=== PATIENT | female | born 1950 | race Caucasian/White ===

== ENCOUNTER 2018-01-27 14:48 | Emergency (ER) | payer MEDICARE, OTHER ==
--- NOTE | 2018-01-27 17:28 | ED ---
Donna House Emily, scribed for Nicki Owen MD on 01/27/18 at 1709 . 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 The patient rates the pain 5/10 in severity. Symptoms aggravated by nothing. Symptoms alleviated by nothing. Patient reports edema and erythema. Pt reports that cut hair gets between her nail and the nail bed. - History of Current Complaint Chief Complaint: EDExtremityUpper Stated Complaint: RT THUMB SWELLING Hx Obtained From: Patient Onset/Duration: Started Days Ago, Still Present Timing: Constant, Lasting Days Severity Initially: Moderate Severity Currently: Moderate Pain Location: Finger Aggravating Factor(s): Nothing Alleviating Factor(s): Nothing Associated Signs & Symptoms: Positive: Swelling, Redness - Allergies/Home Medications Allergies/Adverse Reactions: Allergies Allergy/AdvReac Type Severity Reaction Status Date / Time No Known Allergies Allergy Verified 01/27/18 15:09 PMH/Surg Hx/FS Hx/Imm Hx Previously Healthy: No Opthamlomology History: Denies: Hx Legally Blind EENT History: Denies: Hx Deafness - Surgical History Surgery Procedure, Year, and Place: CHOLECYSTECTOMY, Infectious Disease History: No Infectious Disease History: Denies: Traveled Outside the [place] in Last 30 Days - Family History Known Family History: Positive: Other Family History: NON CONTRIBUTORY - Social History Occupation: Employed Full-time Lives: Alone Alcohol Use: Occasionally Substance Use Type: Reports: None Smoking Status (MU): Never Smoked Tobacco Review of Systems Positive: Edema, Other - Positive R thumb pain Positive: Other - Positive erythema All Other Systems Reviewed And Are Negative: Yes Physical Exam - Summary Physical Exam Summary: Appearance: Well-appearing, Well-nourished Skin: Warm. Right lateral thumb is mildly tender to palpation. Erythematous. Without fluctuance. Eyes: Normal ENT: Normal Neck: Supple, nontender Respiratory: Clear to auscultation Cardiovascular: Regular rate, regular rhythm. Normal S1, S2. Abdomen: Soft, nontender Musculoskeletal: Normal, Strength/ROM Intact Neurological: Normal, A&Ox3 Psychiatric: Normal General: No acute distress Triage Information Reviewed: Yes Vital Signs On Initial Exam: Initial Vitals Temp Pulse Resp BP Pulse Ox 97.7 F 81 17 125/98 97 01/27/18 15:06 01/27/18 15:06 01/27/18 15:06 01/27/18 15:06 01/27/18 15:06 Vital Signs Reviewed: Yes Diagnostics - Vital Signs Vital Signs Temp Pulse Resp BP Pulse Ox 01/27/18 15:06 97.7 F 81 17 125/98 97 - Laboratory Lab Statement: Any lab studies that have been ordered have been reviewed, and results considered in the medical decision making process. Course/Dx - Course Course Of Treatment: felon of right thumb- PO abx [id number] - Diagnoses Provider Diagnoses: Felon of finger of right hand Discharge - Sign-Out/Discharge Documenting (check all that apply): Discharge - Discharge Plan Condition: Stable Disposition: HOME Prescriptions: Cephalexin CAP* [Keflex CAP*] 500 mg PO TID 10 Days #30 cap Patient Education Materials: Paronychia (ED) Referrals: Sae West MD [Primary Care Provider] - Additional Instructions: take antibiotics as directed, then go to urgent care if pain worsens in 3-4 days ON the antibiotics - Billing Disposition and Condition Condition: STABLE Disposition: HOME The documentation as recorded by the Donna chavarria Emily accurately reflects the service I personally performed and the decisions made by , Nicki Owen MD.
[2018-01-27 17:37] VITALS: BP 121/90
== END 2018-01-27 17:36 | disposition home or self-care (01) ==
LOC: ED 14:48
DX: L03.011 Cellulitis of right finger (principal)
CPT/HCPCS: 99282

== ENCOUNTER 2018-07-31 23:19 | Emergency (ER) | payer MEDICARE ==
[2018-08-01] MEDS ORDERED: Meclizine TAB* 12.5 MG PO ONE (02:42)
--- NOTE | 2018-08-01 02:42 | ED ---
Neurological HPI - HPI Summary HPI Summary: The pt is a 67 y.o female presenting to the [facility] with a chief complaint of dizziness. The pt describes the symptoms as "room spinning" and states she has vertigo as well. She has had these symptoms previously but the most recent episode was significantly longer as per pt report. The pt states that the episode lasted 4 hours. During the episode she reports N/V. Other dizziness episodes were intermittent and short while most recent one was described to be "constant." She denies fever and other "cold-like" symptoms. The onset of the episode was stated to be in the morning. - History of Current Complaint Chief Complaint: EDDizziness Stated Complaint: DIZZINESS Time Seen by Provider: 08/01/18 02:30 Hx Obtained From: Patient Pain Intensity: 0 Pain Scale Used: 0-10 Numeric Character: Room Spinning, Dizzy - Allergy/Home Medications Allergies/Adverse Reactions: Allergies Allergy/AdvReac Type Severity Reaction Status Date / Time No Known Allergies Allergy Verified 07/31/18 23:32 PMH/Surg Hx/FS Hx/Imm Hx Sensory History: Denies: Hx Legally Blind, Hx Deafness Opthamlomology History: Denies: Hx Legally Blind - Surgical History Surgery Procedure, Year, and Place: CHOLECYSTECTOMY, Infectious Disease History: No Infectious Disease History: Denies: Traveled Outside the US in Last 30 Days - Family History Known Family History: Positive: Other Family History: NON CONTRIBUTORY - Social History Alcohol Use: Weekly Substance Use Type: Reports: None Smoking Status (MU): Former Smoker Review of Systems Negative: Fever Eyes: Negative ENT: Negative Cardiovascular: Negative Respiratory: Negative Positive: Vomiting, Nausea Genitourinary: Negative Musculoskeletal: Negative Skin: Negative Neurological: Other - Dizziness/room-spinning Psychological: Normal All Other Systems Reviewed And Are Negative: Yes Physical Exam - Summary Physical Exam Summary: VITAL SIGNS: Reviewed. GENERAL: Patient is a well-developed and nourished (FEMALE) who is lying comfortable in the stretcher. Patient is not in any acute respiratory distress. HEAD AND FACE: No signs of trauma. No ecchymosis, hematomas or skull depressions. No sinus tenderness. EYES: PERRLA, EOMI x 2, No injected conjunctiva, no nystagmus. EARS: Hearing grossly intact. Ear canals and tympanic membranes are within normal limits. MOUTH: Oropharynx within normal limits. NECK: Supple, trachea is midline, no adenopathy, no JVD, no carotid bruit, no c- spine tenderness, neck with full ROM. CHEST: Symmetric, no tenderness at palpation LUNGS: Clear to auscultation bilaterally. No wheezing or crackles. CVS: Regular rate and rhythm, S1 and S2 present, no murmurs or gallops appreciated. ABDOMEN: Soft, non-tender. No signs of distention. No rebound no guarding, and no masses palpated. Bowel sounds are normal. EXTREMITIES: FROM in all major joints, no edema, no cyanosis or clubbing. NEURO: Alert and oriented x 3. No acute neurological deficits. Speech is normal and follows commands. SKIN: Dry and warm Triage Information Reviewed: Yes Vital Signs On Initial Exam: Initial Vitals Temp Pulse Resp BP Pulse Ox 97.4 F 68 16 141/67 96 07/31/18 23:30 07/31/18 23:30 07/31/18 23:30 07/31/18 23:30 07/31/18 23:30 Vital Signs Reviewed: Yes Diagnostics - Vital Signs Vital Signs Temp Pulse Resp BP Pulse Ox 08/01/18 01:31 97.2 F 66 16 147/73 99 07/31/18 23:30 97.4 F 68 16 141/67 96 - Laboratory Lab Statement: Any lab studies that have been ordered have been reviewed, and results considered in the medical decision making process. Course/Dx - Course Course Of Treatment: The pt is a 67 y.o female with a chief complaint of dizziness. The pt [facility] that revealed negative findings as per ED Physician. Upon review of physical examination, the pt dx will be benign positional veritgo. We discussed discharge plan with the pt and recommended taking baclofin as needed and during onset of symptoms. - Diagnoses Provider Diagnoses: Benign positional vertigo Discharge - Sign-Out/Discharge Documenting (check all that apply): Patient Departure - Discharge Home - Discharge Plan Condition: Stable Disposition: HOME Prescriptions: Meclizine HCl [Motion Sickness II] 25 mg PO TID PRN #30 tablet PRN Reason: Dizziness Patient Education Materials: Benign Paroxysmal Positional Vertigo (ED) Referrals: Sae West MD [Primary Care Provider] - Additional Instructions: RETURN TO THE EMERGENCY DEPARTMENT FOR CHANGING OR WORSENING SYMPTOMS. FOLLOW UP WITH PCP IN 1-2 DAYS. Take Medication when needed. - Attestation Statements Document Initiated by Scribe: Yes Documenting Scribe: Geoffrey De Los Santos Provider For Whom Scribe is Documenting (Include Credential): Dr. Vic Simmons Scribe Attestation: Geoffrey House, scribed for Dr. Vic Simmons on 08/01/18 at 0605.
[2018-08-01 03:38] VITALS: BP 102/76
== END 2018-08-01 03:37 | disposition home or self-care (01) ==
LOC: ED 23:19
DX: H81.10 Benign paroxysmal vertigo, unspecified ear (principal); R42 Dizziness and giddiness; Z87.891 Personal history of nicotine dependence
CPT/HCPCS: 99282; A9270-GY

== ENCOUNTER 2019-06-18 01:19 | Emergency (ER) | payer MEDICARE ==
[2019-06-18] MEDS ORDERED: Morphine 4 MG/ML VIAL (1 ml) 4 MG/ML VIAL IV ONE ×2 (01:31→03:41)
[2019-06-18] MEDS ORDERED: Ondansetron INJ* 2 MG/ML VIAL IV ONE (01:31)
[2019-06-18] MEDS ORDERED: Ketorolac INJ* 30 MG/ML 1 ML VIAL IV PUSH ONE (01:31)
[2019-06-18] MEDS ORDERED: NS 0.9% 1000 ML** 1,000 ML IV ONE (01:31)
--- NOTE | 2019-06-18 01:35 | ED ---
Back Pain - HPI Summary HPI Summary: Pt is a 68 y/o F presenting to the ED with a chief complaint of L lower back pain initially onset about 1 month ago. She states that the pain waxes and wanes , but tonight she woke up in the middle of the night due to extreme increase in severity. She also notes N/V. - History of Current Complaint Chief Complaint: EDFlankPain Stated Complaint: FLANK PAIN PER PT Time Seen by Provider: 06/18/19 01:27 Hx Obtained From: Patient Onset/Duration: Gradual Onset, Lasting Weeks, Still Present, Worse Since - tonight Onset/Duration: Started Weeks Ago, Still Present Timing: Intermittent, Lasting Hours Back Pain Location: Is Discrete @ - L lower back Severity Initially: Moderate Severity Currently: Severe Pain Intensity: 10 Pain Scale Used: 0-10 Numeric Character: Sharp Aggravating Symptom(s): Nothing Alleviating Symptom(s): Nothing Associated Signs And Symptoms: Positive: Negative - Allergies/Home Medications Allergies/Adverse Reactions: Allergies Allergy/AdvReac Type Severity Reaction Status Date / Time No Known Allergies Allergy Verified 06/18/19 01:21 PMH/Surg Hx/FS Hx/Imm Hx Previously Healthy: Yes Endocrine/Hematology History: Denies: Hx Diabetes History: Denies: Hx Kidney Stones Sensory History: Denies: Hx Legally Blind, Hx Deafness Opthamlomology History: Denies: Hx Legally Blind - Surgical History Surgery Procedure, Year, and Place: CHOLECYSTECTOMY, Infectious Disease History: No Infectious Disease History: Denies: Traveled Outside the [place] in Last 30 Days - Family History Known Family History: Negative: Diabetes - Social History Alcohol Use: Weekly Hx Substance Use: No Substance Use Type: Reports: None Hx Tobacco Use: Yes Smoking Status (MU): Former Smoker Review of Systems Positive: Vomiting, Nausea Positive: Myalgia - flank pain, L All Other Systems Reviewed And Are Negative: Yes Physical Exam - Summary Physical Exam Summary: Appearance: Somewhat obese elderly woman who appears somewhat colicky. Skin: Warm, dry, no obvious rash Eyes: sclera anicteric, no conjunctival pallor ENT: mucous membranes moist, pharynx appears normal Neck: Supple, nontender Respiratory: Clear to auscultation, no signs of respiratory distress Cardiovascular: Normal S1, S2. No murmurs. Normal distal pulses in tibial and radial bilaterally. Abdomen: Soft, nontender, normal active bowel sounds present Musculoskeletal: Normal, Strength/ROM Intact. In her back, there is no CVA tenderness and no restriction in ROM of the back. Neurological: A&Ox3, awake and alert, mentation is normal, speech is fluent and appropriate Psychiatric: affect is normal, does not appear anxious or depressed Triage Information Reviewed: Yes Vital Signs On Initial Exam: Initial Vitals Temp Pulse Resp BP Pulse Ox 96.2 F 112 20 208/125 97 06/18/19 01:20 06/18/19 01:20 06/18/19 01:20 06/18/19 01:20 06/18/19 01:20 Vital Signs Reviewed: Yes Diagnostics - Vital Signs Vital Signs Temp Pulse Resp BP Pulse Ox 06/18/19 01:20 96.2 F 112 20 208/125 97 - Laboratory Result Diagrams: 06/18/19 02:03 06/18/19 02:03 Lab Statement: Any lab studies that have been ordered have been reviewed, and results considered in the medical decision making process. - CT CT a/p CT Interpretation Completed By: Radiologist Summary of CT Findings: 1. Distal left ureteral calculus measuring 5 mm which is approximately 1 cm above the left UVJ with secondary obstructive uropathy of the left upper tract. 2. Minimal nonobstructing left renal calculi. 3. Mild bibasilar interstitial prominence with minimal fibro-atelectatic change. 4. Borderline splenomegaly. 5. Status post cholecystectomy. 6. Colonic diverticulosis without diverticulitis. ED physician has reviewed this report. Re-Evaluation - Re-Evaluation 1st re-eval Re-Evaluation Time: 05:00 Change: Improved Comment: Pt's pain has significantly improved. Back Pain Course/Dx - Course Course Of Treatment: Pt is a 68 y/o F presenting to the ED with a chief complaint of L lower back pain that has been waxing and waning for one month, but woke her up tonight d/t severe pain. She also notes N/V. On exam, there is no CVA tenderness and no restriction of ROM. She is a somewhat obese elderly woman who appears somewhat colicky. CT a/p shows: 1. Distal left ureteral calculus measuring 5 mm which is approximately 1 cm above the left UVJ with secondary obstructive uropathy of the left upper tract. 2. Minimal nonobstructing left renal calculi. 3. Mild bibasilar interstitial prominence with minimal fibro-atelectatic change. 4. Borderline splenomegaly. 5. Status post cholecystectomy. 6. Colonic diverticulosis without diverticulitis. The pt will be d/c'ed with dx of kidney stones and instructed to follow up with Dr. Quezada of urology. She is stable and agreeable with this plan. - Diagnoses Provider Diagnoses: Kidney stones Discharge ED - Sign-Out/Discharge Documenting (check all that apply): Patient Departure Patient Received Moderate/Deep Sedation with Procedure: No - Discharge Plan Condition: Improved Disposition: HOME Prescriptions: Ondansetron ODT TAB* [Zofran 4 MG Odt TAB*] 8 mg PO Q6H PRN #12 tab.odt PRN Reason: Nausea oxyCODONE/Acetamin 5/325 MG* [Percocet 5/325 TAB*] 2 tab PO Q4H PRN #15 tab MDD 6 PRN Reason: Pain - Moderate Prochlorperazine SUPP* [Compazine Supp*] 25 mg .SEE ORDER Q6H PRN #8 supp PRN Reason: Nausea Patient Education Materials: Kidney Stones (ED) Referrals: Adi Quezada MD [Medical Doctor] - Additional Instructions: Contact the urologist's office this morning to set up followup. They deal with this problem frequently and can best advise you what the next step will be. Take the medications prescribed to control the pain and nausea. If you cannot control your symptoms, come back to the ED and we will help. - Attestation Statements Document Initiated by Abraham: Yes Documenting Scribe: Brittney Shields Provider For Whom Abraham is Documenting (Include Credential): Hunter Donald MD. Scribe Attestation: Brittney House, joied for Hunter Donald MD. on 06/18/19 at 0542. Status of Scribe Document: Ready
--- OUTSIDE RECORDS SUMMARY | 2019-06-18 01:43 | XMS REPORT | Summary of Care ---
:1950 Author Organization [facility] Address [address] [facility] [place] [address] Care Team Providers Name Role Phone Darby Zaman MD Primary Care Provider Reason for Referral MRI/CAT/PET Scan (Routine) Status Reason Specialty Diagnoses / Procedures Referred By Referred To Contact Contact Authorized Diagnoses Low back pain without sciatica, unspecified back pain laterality, unspecified chronicity Darby Zaman MD Procedures US RETROPERITONEAL LIMITED [address] [place] [address] MRI/CAT/PET Scan (Routine) Status Reason Specialty Diagnoses / Referred By Referred To Procedures Contact Contact Pending Review Diagnoses Low back pain without sciatica, unspecified back pain laterality, unspecified chronicity Darby Zaman MD Procedures CT CHEST WITHOUT IV CONTRAST [address] [place] [id number] Reason for Visit Reason Comments Back Pain f/u, saw [facility]. Pain is episodic. Gets worse at times. Today pain is better. Staurday it woke her up. Doesn't feel like a disc problem. Encounter Details Date Type Department Care Team Description 06/10/2019 Office Visit [place] [facility] Darby Zaman MD Low back pain without sciatica, unspecified back pain laterality, unspecified chronicity (Primary Dx); Medicine [address] Need for hepatitis C screening test [address] [place] [address] [place] [address] [phone] Allergies No Known Allergiesdocumented as of this encounter (statuses as of 06/10/2019) Medications Medication Sig Dispensed Refills Start Date End Date Status IBUPROFEN 200 PO Take 600 mg by mouth 0 Active DAILY. documented as of this encounter (statuses as of 06/10/2019) Active Problems Problem Noted Date BMI 32.0-32.9,adult 06/12/2017 documented as of this encounter (statuses as of 06/10/2019) Social History Tobacco Use Types Packs/Day Years Used Date Never Smoker Smokeless Tobacco: Never Used Alcohol Use Drinks/Week oz/Week Comments Yes 2 Glasses of wine 2.0 ocassional Sex Assigned at Date Recorded Not on file Job Start Date Occupation Industry Not on file Not on file Not on file Travel History Travel Start Travel End No recent travel history available. documented as of this encounter Last Filed Vital Signs Vital Sign Reading Time Taken Comments Blood Pressure 124/62 06/10/2019 10:39 AM EDT Pulse 60 06/10/2019 10:39 AM EDT Temperature - - Respiratory Rate - - Oxygen Saturation 95% 06/10/2019 10:39 AM EDT Inhaled Oxygen Concentration - - Weight 100.2 kg (221 lb) 06/10/2019 10:39 AM EDT Height 170.2 cm (5' 7") 06/10/2019 10:39 AM EDT Body Mass Index 34.61 06/10/2019 10:39 AM EDT documented in this encounter Progress Notes Darby Zaman MD - 06/10/2019 10:40 AM EDT NAME:Wanda Best 1950: 1950 ENC Date: 06/10/2019 CC: Chief Complaint Patient presents with Back Pain f/u, saw [facility]. Pain is episodic. Gets worse at times. Today pain is better. Staurday it woke her up. Doesn't feel like a disc problem. Wanda Best is a 68-y.o. female Presented with 2 weeks of low back pain to Hina Morrison NP and now again 12 days later- May have had back pain in the past- But not recently thisis a different pain - Pain radiates into the stomach - Started mid back and then to the left side- Pain comes and goes- Standing is the best - Sitting worse- laying down ok Better with ibuprofen - Thought may be related to kidneys or bladder - Was so bad Monday night thought to go to the hospital - Current Outpatient Medications Medication Sig IBUPROFEN 200 PO Take 600 mg by mouth DAILY. No current facility-administered medications for this visit. Patient Active Problem List Diagnosis Date Noted BMI 32.0-32.9,adult 06/12/2017 Family History Problem Relation Age of Onset Diabetes Mother Cancer Mother No cardiopulmonary symptoms No upper or lower GI complaints No urinary tract symptoms. No bruising/ bleeding. No neurological complaints . No insomnia.+ . Social History Tobacco Use Smoking status: Never Smoker Smokeless tobacco: Never Used Substance Use Topics Alcohol use: Yes Alcohol/week: 2.0 standard drinks Types: 2 Glasses of wine per week Comment: ocassional Drug use: Not on file OBJECTIVE: BP 124/62 | Pulse 60 | Ht 5' 7" (1.702 m) | Wt 221 lb (100.2 kg) | SpO2 95% | BMI 34.61 kg/m . Heent neg Neck no JVD, thyromegaly or bruit Lungs Clear CV rrr Abd soft, nontender, no organomegaly Ext no edema; no lesions; pulses intact Neuro: intellect intact ; motor including gait unremarkable A/P ICD-9-CM ICD-10-CM 1. Low back pain without sciatica, unspecified back pain laterality, unspecified chronicity 724.2 M54.5 URINE DIP MANUAL (AMB POCT) There are no Patient Instructions on file for this visit. AUTHOR: Darby Zaman MD 11:03 06/10/2019 documented in this encounter Plan of Treatment Name Type Priority Associated Diagnoses Order Schedule CBC WITH DIFFERENTIAL Lab Routine Low back pain without Expected: sciatica, unspecified 06/10/2019 back pain laterality, (Approximate), unspecified chronicity Expires: 12/07/2019 COMPREHENSIVE METABOLIC Lab Routine Low back pain without Expected: PANEL sciatica, unspecified 06/10/2019 back pain laterality, (Approximate), unspecified chronicity Expires: 12/07/2019 CT CHEST WITHOUT IV Imaging Routine Low back pain without Expected: CONTRAST sciatica, unspecified 06/10/2019, back pain laterality, Expires: 06/09/2020 unspecified chronicity US RETROPERITONEAL LIMITED Imaging Routine Low back pain without Expected: sciatica, unspecified 06/10/2019, back pain laterality, Expires: 06/09/2020 unspecified chronicity Health Maintenance Due Date Last Done Comments MEDICARE ANNUAL WELLNESS VISIT 1950 HIV SCREENING 1966 HEPATITIS C SCREENING 1991 COLONOSCOPY SCREENING 2001 ZOSTER IMMUNIZATION SERIES (1 2001 of 2) FALL RISK ASSESSMENT 2016 OSTEOPOROSIS SCREENING 2016 PNEUMOCOCCAL 65+YRS (1 of 2 - 2016 PCV13) INFLUENZA VACCINE (#1) 2019 DIABETES SCREENING 12/21/2019 12/20/2018, 05/02/2017 MAMMOGRAM (SCREENING) 01/11/2020 01/10/2019, 05/30/2017 DEPRESSION SCREENING 05/29/2020 05/29/2019 LIPID DISORDER SCREENING 12/21/2023 12/20/2018, 05/02/2017 HPV IMMUNIZATION SERIES Aged Out No longer eligible based on patient's age to complete this topic MENINGOCOCCAL VACCINE IMM Aged Out No longer eligible based on patient's age to complete this topic documented as of this encounter Procedures Procedure Name Priority Date/Time Associated Diagnosis Comments URINE DIP MANUAL Routine 06/10/2019 10:48 AM Low back pain Results for this (AMB POCT) EDT without sciatica, procedure are in unspecified back the results pain laterality, section. unspecified chronicity documented in this encounter Results URINE DIP MANUAL (AMB POCT) (06/10/2019 10:48 AM EDT) URINE GLUCOSE (POCT) Negative Negative mg/dl [facility] POCT URINE BILIRUBIN Negative Negative [facility] (POCT) [place] POCT Urine Ketones (POCT) Negative Negative [facility] POCT URINE SPECIFIC 1.020 1.005 - 1.030 [facility] (POCT) [place] POCT URINE BLOOD (POCT) Trace-Intact (A) Negative [facility] POCT URINE PH (POCT) 6.0 5.0 - 8.0 [facility] POCT URINE PROTEIN (POCT) Negative Negative mg/dl [facility] POCT URINE UROBILINOGEN 0.2 0.2 - 1.0 mg/dl [facility] (POCT) [place] PO[place] URINE NITRITES Negative Negative [facility] (POCT) [place] POCT URINE LEUKOCYTES Negative Negative [facility] (POCT) Cells/uL [place] POCT Specimen Urine Performing Organization Address City/State/Zipcode Phone Number [facility] [address] [place] [address] documented in this encounter Visit Diagnoses Diagnosis Low back pain without sciatica, unspecified back pain laterality, unspecified chronicity - Primary Need for hepatitis C screening test Special screening examination for other specified viral diseases documented in this encounter Insurance Payer Benefit Plan / Subscriber ID Effective Dates Phone Address Type Group [employer] EX[employer] xxxxxxxxxxxx 2016-Presen [employer] MEDICARE BLUE t PPO [phone]) Guarantor Name Account Type Relation to Date of Phone Billing Address Patient Wanda Best Personal/Famil 1950 [address] (Home) [address] [facility] [place] ([place]) [place] [address] documented as of this encounter
--- OUTSIDE RECORDS SUMMARY | 2019-06-18 01:43 | XMS REPORT | Summary of Care ---
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 documented as of this encounter (statuses as of 05/29/2019) Active Problems Problem Noted Date BMI 32.0-32.9,adult 06/12/2017 documented as of this encounter (statuses as of 05/29/2019) Social History Tobacco Use Types Packs/Day Years [...] Sign Reading Time Taken Comments Blood Pressure 124/78 05/29/2019 2:25 PM EDT Pulse 80 05/29/2019 2:25 PM EDT Temperature - - Respiratory Rate - - Oxygen Saturation 95% 05/29/2019 2:25 PM EDT Inhaled Oxygen Concentration - - Weight 100.2 kg (220 lb 12.8 oz) 05/29/2019 2:25 PM EDT Height 170.2 cm (5' 7") 05/29/2019 2:25 PM EDT Body Mass Index 34.58 05/29/2019 2:25 PM EDT documented in this encounter Patient Instructions Patient InstructionsHina Morrison FNP - 05/29/2019 2:20 PM EDTHeat or ice as needed Advil 2-3 tabs up to 3 times a day OR Aleve 1-2 tabs twice a day as needed - EAT FIRST Xrays pending review Consider referral to Dr Abdi documented in this encounter Progress Notes Hina Morrison FNP - 05/29/2019 2:20 PM EDT PATIENT: Wanda Best : 1950 DATE OF SERVICE: 05/29/2019 CHIEF COMPLAINT: Chief Complaint Patient presents with Check Up lower back pain only gets better when in bed Subjective HISTORY OF PRESENT ILLNESS: Wanda Best is a 68-y.o. female. HPI LBP x 2 weeks - tried increased fluids - helps. Past Medical History: Diagnosis Date Postmenopausal , first Family History Problem Relation Age of Onset Diabetes Mother Cancer Mother Current Outpatient Medications Medication Sig IBUPROFEN 200 PO Take 600 mg by mouth DAILY. No current facility-administered medications for this visit. No Known Allergies Social History Socioeconomic History Marital status: Single Spouse name: Not on file Number of children: Not on file Years of education: Not on file Highest education level: Not on file Occupational History Not on file Social Needs Financial resource strain: Not on file Food insecurity: Worry: Not on file Inability: Not on file Transportation needs: Medical: Not on file Non-medical: Not on file Tobacco Use Smoking status: Never Smoker Smokeless tobacco: Never Used Substance and Sexual Activity Alcohol use: Yes Alcohol/week: 2.0 standard drinks Types: 2 Glasses of wine per week Comment: ocassional Drug use: Not on file Sexual activity: Not on file Lifestyle Physical activity: Days per week: Not on file Minutes per session: Not on file Stress: Not on file Relationships Social connections: Talks on phone: Not on file Gets together: Not on file Attends jehovah's witness service: Not on file Active member of club or organization: Not on file Attends meetings of clubs or organizations: Not on file Relationship status: Not on file Intimate partner violence: Fear of current or ex partner: Not on file Emotionally abused: Not on file Physically abused: Not on file Forced sexual activity: Not on file Other Topics Concern Back Care Not Asked Bike Helmet Not Asked Blood Transfusions Not Asked Caffeine Concern Not Asked Exercise Not Asked Hobby Hazards Not Asked International Travel Not Asked Service Not Asked Occupational Exposure Not Asked Seat Belt Not Asked Self-Exams Not Asked Sleep Concern Not Asked Special Diet Not Asked Stress Concern Not Asked Weight Concern Not Asked 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 Negative for chills and fever. Gastrointestinal: Negative for abdominal pain, nausea and vomiting. Genitourinary: Negative for dysuria, flank pain, frequency, hematuria and urgency. Musculoskeletal: Positive for back pain and myalgias. Negative for falls. Neurological: Negative for tingling, weakness and headaches. Objective PHYSICAL EXAM: VITALS: BP 124/78 (BP Location: Left arm, Patient Position: Sitting) | Pulse 80 | Ht 5' 7" (1.702m) | Wt 220 lb 12.8 oz (100.2 kg) | SpO2 95% | BMI 34.58 kg/m Body mass index is 34.58 kg/m. Physical Exam Constitutional: She is oriented to person, place, and time. Vital signs are normal. She appears well-developed and well-nourished. HENT: Head: Normocephalic and atraumatic. Eyes: Pupils are equal, round, and reactive to light. Abdominal: Bowel sounds are normal. She exhibits no distension. There is no hepatosplenomegaly. There is no tenderness. There is no rigidity and no CVA tenderness. Urine dipstick shows negative for all components, positive for leukocytes, red blood cells. Musculoskeletal: Normal range of motion. Lumbar back: She exhibits tenderness. She exhibits normal range of motion and no spasm. Back: Xray reviewed - possible DDD - await radiologist report Neurological: She is alert and oriented to person, place, and time. No cranial nerve deficit or sensory deficit. Gait normal. Skin: Skin is warm and dry. Vitals reviewed. ASSESSMENT / IMPRESSION: ICD-9-CM ICD-10-CM 1. Acute midline low back pain without sciatica 724.2 M54.5 URINE DIP MANUAL ( AMB POCT) XR LUMBAR SPINE MIN 4 VIEWS (STANDARD) 2. Hematuria, unspecified type 599.70 R31.9 URINE CULTURE (C&S) Plan Heat or ice as needed Advil 2-3 tabs up to 3 times a day OR Aleve 1-2 tabs twice a day as needed - EAT FIRST Xrays pending review Consider referral to Dr Abdi Author: FREDERICK Gabriel 05/29/2019 16:24 documented in this encounter Plan of Treatment Name Type Priority Associated Diagnoses Date/Time XR LUMBAR SPINE MIN 4 Imaging Routine Acute midline low back 05/29/2019 3: 13 PM EDT VIEWS (STANDARD) pain without sciatica Name Type Priority Associated Diagnoses Order Schedule XR LUMBAR SPINE MIN Imaging Routine Acute midline low back 1 Occurrences starting 4 VIEWS (STANDARD) pain without sciatica 05/29/2019 until 05/28/2020 URINE CULTURE (C&S) Lab Routine Hematuria, unspecified 1 Occurrences starting type 05/29/2019 until 11/25/2019 Health Maintenance Due Date Last Done Comments [...] Associated Diagnosis Comments URINE DIP MANUAL Routine 05/29/2019 3:22 PM Acute midline low Results for this (AMB POCT) EDT back pain without procedure are in sciatica the results section. documented in this encounter Results URINE DIP MANUAL (AMB POCT) (05/29/2019 3:22 PM EDT) URINE GLUCOSE (POCT) Negative Negative mg/dl [facility] [place] POCT URINE BILIRUBIN Negative Negative [facility] (POCT) [place] POCT Urine Ketones (POCT) Negative Negative [facility] [place] POCT URINE SPECIFIC 1.030 1.005 - 1.030 [facility] GRAVITY (POCT) [place] POCT URINE BLOOD (POCT) Trace-Intact (A) Negative [facility] POCT URINE PH (POCT) 5.0 5.0 - 8.0 [facility] POCT URINE PROTEIN (POCT) Negative Negative mg/dl [facility] POCT URINE UROBILINOGEN 0.2 0.2 - 1.0 mg/dl [facility] (POCT) [place] POCT URINE NITRITES Negative Negative [facility] (POCT) [place] POCT URINE LEUKOCYTES Moderate (A) Negative [facility] (POCT) Cells/uL [place] POCT Specimen Urine Performing Organization Address City/State/Zipcode Phone Number [facility] [place] [address] [place] [address] documented in this encounter Visit Diagnoses Diagnosis Acute midline low back pain without sciatica - Primary Hematuria, unspecified type documented in this encounter Insurance Payer Benefit Plan / Subscriber ID Effective Dates Phone Address Type Group [employer]LL[employer] xxxxxxxxxxxx 2016-[employer] ADVANTAGE MEDICARE BLUE t PPO [phone]) Guarantor Name Account Type Relation to Date of Phone Billing Address Patient Wanda Best Personal/Famil 1950 [address] (Home) [address] [place] ([place]) [place] [address] documented as of this encounter
[2019-06-18 02:14] LABS: ABS Basophils 0.1 10^3/ul (0-0.2); ABS Eosinophils 0.4 10^3/ul (0-0.6); ABS Lymphocytes 4.2 10^3/ul (1.0-4.8); ABS Monocytes 0.9 10^3/ul (0-0.8); ABS Neutrophils 3.1 10^3/ul (1.5-7.7); Eosinophil % 4.2 %; Hematocrit 43 % (35-47); Hemoglobin 14.6 g/dL (12.0-16.0); Mean Corpuscular HGB Conc 34 g/dL (31-36); Mean Corpuscular Hemoglobin 31 pg (27-31); Mean Corpuscular Volume 92 fL (80-97); Mean Platelet Volume 9.2 fL (7.4-10.4); Platelet Count 144 10^3/uL (150-450); Red Blood Count 4.72 10^6 /uL (3.70-4.87); Red Cell Distribution Width 14 % (10-15); White Blood Count 8.7 10^3/uL (3.5-10.8)
[2019-06-18 02:15] LABS: Urine Appearance Cloudy; Urine Bacteria Absent (Absent); Urine Bilirubin Negative (Negative); Urine Blood 3+ (Negative); Urine Color Yellow; Urine Glucose Negative (Negative); Urine Ketones Negative (Negative); Urine Nitrite Negative (Negative); Urine Protein 1+(30 mg/dL) (Negative); Urine Red Blood Cell 3+(>10/hpf) (Absent); Urine Specific Gravity 1.018 (1.010-1.030); Urine Urobilinogen Negative (Negative); Urine White Blood Cell 1+(6-10/hpf) (Absent)
[2019-06-18 02:33] LABS: Albumin/Globulin Ratio 1.4 (1-3); BUN/Creatinine Ratio 19.1 (8-20); Calcium 8.7 mg/dL (8.6-10.3); EGFR African American 76.5 (>60); EGFR Non-African American 63.3 (>60); Globulin 2.8 g/dL (2-4); Potassium 3.2 mmol/L (3.5-5.0); Total Bilirubin 0.6 mg/dL (0.2-1.0); Total Protein 6.8 g/dL (6.4-8.9)
[2019-06-18] MEDS ORDERED: oxyCODONE TAB* 5 MG TAB PO ONE (02:51)
[2019-06-18] MEDS ORDERED: PROCHLORPERAZINE INJ 5 MG/ML 2 ML VIAL IV ONE (03:40)
[2019-06-18] MEDS ORDERED: Prochlorperazine SUPP* 25 MG SUPP PR ONE (05:34)
[2019-06-18] MEDS ORDERED: Prochlorperazine TAB* 10 MG PO ONE (05:34)
[2019-06-18 06:47] VITALS: BP 141/72
== END 2019-06-18 06:45 | disposition home or self-care (01) ==
LOC: ED 01:19
DX: N20.0 Calculus of kidney (principal); R16.1 Splenomegaly, not elsewhere classified; Z90.49 Acquired absence of other specified parts of digestive tract; K57.30 Diverticulosis of large intestine without perforation or abscess without bleeding; Z87.891 Personal history of nicotine dependence; Z79.899 Other long term (current) drug therapy
CPT/HCPCS: 36415; 74176; 80053; 81003; 81015; 85025; 87086; 96361; 96374; 96375; 96376; 99285; A9270-GY; J0780; J1885; J2270; J2405; Q0164

== ENCOUNTER 2019-06-21 09:23 | Day surgery (SDC) | payer MEDICARE ==
--- NOTE | 2019-06-19 22:01 | HP ---
HISTORY AND PHYSICAL: DATE OF PLANNED ADMISSION/SURGERY: 06/21/19 HISTORY OF PRESENT ILLNESS: Mrs. Best is a 68-year-old white female who is admitted with a left ureteral calculus, for cystoscopy, left ureteroscopy, laser lithotripsy, and left ureteral stent insertion. Mrs. Best's symptom started several weeks ago when she was having dull pain in her left flank. Three days ago she developed left renal colic and presented to the emergency room for evaluation and treatment. The colic was not associated with any fever or chills. She had a noncontrast CT of the abdomen and pelvis, which showed a 5 mm calculus in the distal left ureter associated with moderate left hydroureteronephrosis. The patient was managed conservatively with pain medication and fluids and was sent home on oxycodone and on antiemetics as needed. Over the last 2 days the patient continued to have recurrent episodes of bothersome left flank pain and presented to my office for evaluation. Her past history is negative. No past history of any renal diseases or calculi. No history of any urinary tract infections or voiding symptoms. PAST MEDICAL HISTORY AND SYSTEM REVIEW: She is in very good health. SURGICAL HISTORY: Relevant for a cholecystectomy and a section. MEDICATIONS: She is on no chronic medications. ALLERGIES: She denies any allergies to medications. FAMILY HISTORY: Negative. SOCIAL HISTORY: She is a nonsmoker and denies any illicit drug use. PHYSICAL EXAMINATION GENERAL: She is moderately obese, otherwise healthy-looking white female. VITAL SIGNS: Blood pressure 160/100 (in pain), temperature 98. LUNGS: Clear. HEART: Regular and rhythmic. No murmurs. ABDOMEN: Soft. There is mild low left CVA tenderness. DIAGNOSTIC STUDIES/LAB DATA: For evaluation of her recent colic, the patient had bilateral renal ultrasounds in my office at her visit on 06/19/19. The study showed moderate left hydronephrosis and a 4 to 5 mm calculus in the distal left ureter, just proximal to the level of the ureteral orifice. There were small bilateral ureteral jets. Her urinalysis in my office showed +2 blood, was negative otherwise. IMPRESSION: Recurrent episodes of left renal colic secondary to a 5 mm calculus in the distal left ureter. PLAN: To continue with conservative management with pain medication. She was also instructed to very carefully strain her urine for any stones. If the stone has not passed before her planned admission on 06/21/19, then the plan is to proceed with left ureteroscopy, laser lithotripsy, and left ureteral stent insertion. I discussed the above plan in detail with the patient. All her questions were answered. [id number]/[facility] #: [id number] ADEOLA
[~2019-06-21 09:23] MED LIST: Buffered Lidocaine 1% SYRIN* 1 ML/SYRINGE INTRADERM ONE; Lactated Ringers 1000 ML Bag* 1,000 ML IV SCH
[2019-06-21] MEDS ORDERED: cefTRIAXone(*) 2 GM ADDV.VIAL IVPB ONE (10:38)
[2019-06-21] MEDS ORDERED: fentaNYL* 50 MCG/ML 2 ML VIAL (100 MCG VIAL) ONE (11:11)
[2019-06-21] MEDS ORDERED: Midazolam* 1 MG/ML 2 ML VIAL (2 MG) ONE (11:11)
[2019-06-21] MEDS ORDERED: Iohexol 180 (CONTRAST) 10 ML SDV IV ONE (11:37)
[2019-06-21] MEDS ORDERED: Propofol* 10 MG/ML 20 ML BTL ONE (12:12)
[2019-06-21] MEDS ORDERED: Ondansetron INJ* 2 MG/ML VIAL ONE (12:12)
[2019-06-21] MEDS ORDERED: Lidocaine 2% PF * 5 ML VIAL ONE (12:12)
[2019-06-21] MEDS ORDERED: Dexamethasone IV* 4 MG/ML 1 ML (4 MG) ONE (12:12)
[2019-06-21] MEDS ORDERED: Phenylephrine 40 MCG/ML SYRINGE ONE (12:24)
[2019-06-21] MEDS ORDERED: HYDROcodone/ACETAMIN 5-325 MG* 1 TAB PO PRN (12:35)
[2019-06-21] MEDS ORDERED: HYDROmorphone INJ1* 1 MG/ML SYRINGE IV PRN (12:35)
[2019-06-21] MEDS ORDERED: Naloxone* 0.4 MG/ML 1 ML VIAL IV PRN (12:35)
[2019-06-21 13:17] VITALS: BP 112/70
--- NOTE | 2019-06-21 13:25 | OP ---
DATE OF OPERATION: 06/21/19 - [facility] DATE OF : 52 SURGEON: Adi Quezada MD ANESTHESIOLOGIST: Dr. Moreno. ANESTHESIA: General. PRE-OP DIAGNOSES: 1. Distal left ureteral calculus. 2. Recurrent episodes of left renal colic due to above. POST-OP DIAGNOSES: 1. Distal left ureteral calculus. 2. Recurrent episodes of left renal colic due to above. OPERATIVE PROCEDURE: 1. Cystoscopy. 2. Left ureteroscopy and laser lithotripsy of distal left ureteral calculus (6 mm). 3. Left retrograde pyelography. 4. Insertion of left ureteral stent (6-Mexican). INDICATION FOR PROCEDURE: Ms. Best is a 68-year-old white female, who presented to the emergency room 5 days ago with symptoms of left renal colic and was noted on CT to have a 6 mm calculus in the distal left ureter. She was managed conservatively; however, she continued to have recurrent episodes of acute left flank pain requiring the use of pain medications for control. Because of the above history and persistent symptoms and after discussing the options of management, the patient wanted to proceed with endoscopic stone extraction. PATHOLOGY: At cystoscopy, the bladder mucosa looked normal. There were no suspicious bladder lesions seen. The ureteral orifices looked normal without any edema. No calculi or diverticula were noted. Upon left ureteroscopy, there was a 6 mm calculus that was impacted in the distal left ureter about 1.5 cm proximal to the orifice. The calculus had the gross appearance of a calcium oxalate stone. There was edema and hyperemia of the ureteral mucosa adjacent to the stone. There was dilatation and some tortuosity of the ureter proximal to the obstruction and there was moderate left hydronephrosis. DESCRIPTION OF PROCEDURE: After successful general anesthesia, the patient was placed in the lithotomy position and was prepped and draped for a cystoscopy. Cystoscopy was performed, the bladder was carefully inspected and the above findings were noted. A flexible-tip guidewire was then introduced into the left orifice and positioned in the area of the renal pelvis under fluoroscopy guidance. A 6.5 semi-rigid tapered ureteroscope was then introduced inside the bladder. A flexible-tip basket was introduced through the port of the ureteroscope and its flexible tip was then introduced into the left ureter alongside the guidewire. That allowed the atraumatic introduction of the ureteroscope inside the ureter. The calculus was identified, was disimpacted, the basket was then deployed and the stone was engaged to prevent its proximal migration. A size 550 micron laser fiber was then introduced into the other port of the ureteroscope. Using the laser energy, the stone was then fragmented into several pieces. The stone fragments were then extracted using the basket and sent for stone analysis. Final inspection showed no residual calculi, no evidence of any ureteral wall injury. The above-described edema and hyperemia of the ureteral mucosa secondary to the stone impaction were again noted. Retrograde pyelography was then performed. A size 6-Mexican stent was then placed with the proximal end coiling in the renal pelvis and the distal end coiling inside the bladder. There was good drainage of contrast from the kidney and no extravasation. The patient tolerated the procedure well and left the operating room in good condition. The plan is to see the patient back in the office in about 10 days and the stent will be removed under local anesthesia. [id number]/[facility] #: [id number] [place]
== END 2019-06-21 13:54 | disposition home or self-care (01) ==
LOC: OR 09:23
PROVIDERS: ATTEND Urology
DX: N13.2 Hydronephrosis with renal and ureteral calculous obstruction (principal); M19.90 Unspecified osteoarthritis, unspecified site; E66.8 Other obesity
CPT/HCPCS: 74420; 82365; 88300; C1876; J0696; J1100; J2250; J2405; J2704; J3010

== ENCOUNTER 2020-12-14 08:34 | Inpatient (IN) ==
[2020-12-14] MEDS ORDERED: ceFAZolin 2 GM PREMIX 2 GM/50 ML BAG IVPB ONE (09:19)
[2020-12-14] MEDS ORDERED: NS 0.9% 500 ml BAG 500 ML IV ONE (09:19)
[2020-12-14 10:02] LABS: Hematocrit 44 % (35-47); Hemoglobin 14.9 g/dL (12.0-16.0); Mean Corpuscular HGB Conc 34 g/dL (31-36); Mean Corpuscular Hemoglobin 31 pg (27-31); Mean Corpuscular Volume 92 fL (80-97); Mean Platelet Volume 9.2 fL (7.4-10.4); Platelet Count 171 10^3/uL (150-450); Red Blood Count 4.79 10^6 /uL (3.70-4.87); Red Cell Distribution Width 14 % (10-15)
[2020-12-14 10:22] LABS: BUN/Creatinine Ratio 26.7 (8-20); Calcium 8.9 mg/dL (8.6-10.3); EGFR African American 92.7 (>60); EGFR Non-African American 76.6 (>60); Potassium 3.5 mmol/L (3.5-5.0)
[2020-12-14] MEDS ORDERED: Morphine 2 MG/ML SYRINGE IV PRN ×2 (11:09→16:20)
[2020-12-14] MEDS ORDERED: Magnesium Hydroxide LIQ 30 ML UDC PO PRN ×2 (11:09→16:20)
[2020-12-14] MEDS ORDERED: diPHENhydraMINE IV 50 MG/ML 1 ml VIAL (BENADRYL) IV PRN ×2 (11:09→16:20)
[2020-12-14] MEDS ORDERED: diPHENhydraMINE 25 mg TAB PO PRN ×2 (11:09→16:20)
[2020-12-14] MEDS ORDERED: Ondansetron 4 mg VIAL 2 MG/ML 2 ml VIAL IV PRN ×3 (11:09→16:20)
[2020-12-14] MEDS ORDERED: Lactulose 30 ml UDC PO PRN ×2 (11:09→16:20)
[2020-12-14] MEDS ORDERED: Ondansetron ODT 4 mg TAB 4 MG TAB PO PRN ×2 (11:09→16:20)
[2020-12-14 11:34] LABS: Activated Partial Thrombo Time 30.1 seconds (26.0-38.0); INR 0.92 (0.82-1.09)
[2020-12-14] MEDS ORDERED: Lactated Ringers 1000 ml BAG 1,000 ML IV SCH ×2 (12:00→17:00)
[2020-12-14] MEDS ORDERED: ceFAZolin 1 GM ADVAN 1 GM in NS 0.9% 50 ML 50 ML IVPB SCH ×2 (12:00→13:00)
[2020-12-14] MEDS ORDERED: Bupivacaine 0.25% SDV 30 ML ONE (12:42)
[2020-12-14] MEDS ORDERED: Ondansetron 4 mg VIAL 2 MG/ML 2 ml VIAL ONE (12:49)
[2020-12-14] MEDS ORDERED: Propofol 10 MG/ML 20 ML BTL ONE (12:49)
[2020-12-14] MEDS ORDERED: Lidocaine 2% PF 5 ML VIAL ONE (12:49)
[2020-12-14] MEDS ORDERED: fentaNYL 100 mcg/2 ml 50 MCG/ML VIAL ONE (12:49)
[2020-12-14] MEDS ORDERED: Dexamethasone IV 4 MG/ML VIAL 1 ml VIAL ONE (12:49)
[2020-12-14] MEDS ORDERED: Midazolam 2 mg/2 ml VIAL 1 mg/ml 2 ml VIAL (2 mg) ONE (12:50)
[2020-12-14] MEDS ORDERED: ceFAZolin 2 GM PREMIX 2 GM/50 ML BAG ONE (13:31)
[2020-12-14] MEDS ORDERED: ROPIVACAINE 5 MG/ML 30 ML BTL (0.5%) ONE (13:53)
[2020-12-14] MEDS ORDERED: Lidocaine 2% w/ EPI 1:200,000 MPF 20 ML SDV VIAL ONE ×2 (13:55→13:58)
[2020-12-14] MEDS ORDERED: fentaNYL 100 mcg/2 ml 50 MCG/ML VIAL IV PRN (15:44)
[2020-12-14] MEDS ORDERED: Naloxone 0.4 mg VIAL 0.4 mg/ml 1 ml VIAL IV PRN (15:44)
[2020-12-14] MEDS ORDERED: HYDROmorphone 1 MG/1 ML SYRINGE IV PRN (15:44)
[2020-12-14] MEDS ORDERED: Magnesium Hydroxide LIQ 30 ML UDC PO SCH (21:00)
[2020-12-14] MEDS: ceFAZolin 1 GM ADVAN 1 GM in NS 0.9% 50 ML 50 ML IVPB SCH (21:41)
[2020-12-14] MEDS: Magnesium Hydroxide LIQ 30 ML UDC PO SCH (21:49)
[2020-12-15] MEDS: ceFAZolin 1 GM ADVAN 1 GM in NS 0.9% 50 ML 50 ML IVPB SCH ×2 (05:41→13:26)
[2020-12-15 06:37] LABS: Calcium 9.4 mg/dL (8.6-10.3); Potassium 4.1 mmol/L (3.5-5.0)
[2020-12-15 06:43] LABS: BUN/Creatinine Ratio 20.9 (8-20); EGFR African American 105.6 (>60); EGFR Non-African American 87.3 (>60)
[2020-12-15 06:46] LABS: Hematocrit 44 % (35-47); Hemoglobin 14.6 g/dL (12.0-16.0); Mean Platelet Volume 9.3 fL (7.4-10.4); Platelet Count 141 10^3/uL (150-450)
[2020-12-15] MEDS: Magnesium Hydroxide LIQ 30 ML UDC PO SCH (08:52)
[2020-12-15] MEDS ORDERED: Vitamin THERAPEUTIC TAB PO SCH ×2 (09:00)
[2020-12-15 16:38] VITALS: BP 127/52
== END 2020-12-15 17:30 | disposition home or self-care (01) | DRG 512 ==
LOC: ED 08:34 → SSU 11:09 → ED 12:16 → SSU 12:16
PROVIDERS: ADMIT Student in an Organized Health Care Education/Training Program; ATTEND Orthopaedic Surgery Hand Surgery